=== PATIENT | female | born 1990 | race Caucasian/White ===

== ENCOUNTER 2020-12-20 12:36 | Inpatient (IN) | payer OTHER, MEDICAID ==
[~2020-12-20] VITALS: Ht 157.5 cm; Wt 71.2 kg
[~2020-12-20 12:36] MED LIST: PNV91TAB3 PO
[2020-12-21] MEDS ORDERED: CEFAZOLIN SODIUM 1 GM VIAL IVP PRN (08:30)
[2020-12-21] MEDS ORDERED: LACTATED RINGERS 1000ML 1,000 ML IV SCH (08:30)
[2020-12-21 08:56] LABS: HEMATOCRIT 34.8 % (36-48); MEAN CORPUSCULAR HEMOGLOBIN 28.5 pg (27.0-33.0); MEAN CORPUSCULAR HGB CONC 33.6 g/dL (32.0-36.0); MEAN CORPUSCULAR VOLUME 84.9 fL (79-99); RED BLOOD CELL COUNT(AUTO) 4.1 MIL/uL (4.00-5.50); RED CELL DISTRIBUTION WIDTH 13.6 % (11.0-15.5); WHITE BLOOD COUNT (AUTO) 14.5 K/uL (4.8-10.8)
[2020-12-21 11:08] LABS: RAPID PLASMA REAGIN NONREACTIVE (NONREACTIVE)
[2020-12-21] MEDS ORDERED: FENTANYL CITRATE PF 50 MCG/1 ML 2ML VIAL ONE (12:38)
[2020-12-21] MEDS ORDERED: MORPHINE PF 100MG/10ML AMP IV ONE (12:38)
[2020-12-21] MEDS ORDERED: OXYTOCIN 10 UNIT/1ML 10ML VIAL ONE (12:39)
[2020-12-21] MEDS ORDERED: ONDANSETRON 4MG INJ ONE (12:40)
[2020-12-21] MEDS ORDERED: CEFAZOLIN SODIUM 1 GM VIAL IVP ONE (12:51)
[2020-12-21] MEDS ORDERED: MEPERIDINE-PF 75 MG/ML SYG IM PRN (13:30)
[2020-12-21] MEDS ORDERED: PROMETHAZINE HCL 25 MG/ML 1ML AMPULE IM PRN (13:30)
[2020-12-21] MEDS ORDERED: 0.9%NACL 10ML VIAL IVP PRN (13:30)
[2020-12-21] MEDS ORDERED: OXYTOCIN-LR 20 UNITS/1000 ML 1,000 ML IV PRN (13:30)
[2020-12-21 15:14] VITALS: BP 113/67
[2020-12-21] MEDS ORDERED: NALOXONE HCL 0.4 MG/1 ML ML IVP PRN ×3 (15:45→16:00)
[2020-12-21] MEDS ORDERED: EPHEDRINE SULFATE 50 MG/ML AMPULE IVP PRN (16:00)
[2020-12-21] MEDS ORDERED: DiphenhydrAMINE HCL 50 MG/ML VIAL IVP PRN (16:00)
[2020-12-21] MEDS ORDERED: ONDANSETRON 4MG INJ IVP PRN (16:00)
[2020-12-21 20:45] VITALS: BP 119/63
[2020-12-21] MEDS: DEXTROSE 5 %-0.45 % NACL 1,000 ML IV PRN (21:21)
[2020-12-21 23:44] VITALS: BP 102/60
[2020-12-22 03:48] VITALS: BP 105/64
[2020-12-22] MEDS: DEXTROSE 5 %-0.45 % NACL 1,000 ML IV PRN (03:59)
[2020-12-22 06:54] LABS: HEMATOCRIT 34.9 % (36-48); MEAN CORPUSCULAR HEMOGLOBIN 27.9 pg (27.0-33.0); MEAN CORPUSCULAR HGB CONC 32.4 g/dL (32.0-36.0); MEAN CORPUSCULAR VOLUME 86.2 fL (79-99); RED BLOOD CELL COUNT(AUTO) 4.05 MIL/uL (4.00-5.50); RED CELL DISTRIBUTION WIDTH 13.7 % (11.0-15.5); WHITE BLOOD COUNT (AUTO) 15.5 K/uL (4.8-10.8)
[2020-12-22 07:17] VITALS: BP 100/53
[2020-12-22] MEDS ORDERED: HYDROCODONE/ACETAMINOPHEN 5/325 MG TAB PO PRN (08:45)
[2020-12-22] MEDS ORDERED: ACETAMINOPHEN 500 MG TABLET PO PRN (08:45)
[2020-12-22] MEDS ORDERED: IBUPROFEN 600 MG TABLET PO PRN (08:45)
[2020-12-22] MEDS ORDERED: BISACODYL 10 MG SUPP.RECT RC PRN (08:45)
[2020-12-22] MEDS ORDERED: ACETAMINOPHEN WITH CODEINE 1 TAB TAB PO PRN (08:45)
[2020-12-22] MEDS ORDERED: LANOLIN 30GM OINTMENT TP PRN (08:45)
[2020-12-22] MEDS ORDERED: DOCUSATE SODIUM 100 MG CAP PO SCH (09:00)
[2020-12-22] MEDS: SIMETHICONE 80 MG TAB.CHEW PO PRN ×2 (09:18→13:11)
[2020-12-22 11:21] VITALS: BP 110/59
[2020-12-22] MEDS ORDERED: IBUPROFEN 800 MG TAB PO SCH (13:30)
[2020-12-23 09:10] LABS: HEPATITIS Bs ANTIGEN SCREEN P Negative (Negative)
== END 2020-12-22 13:40 | disposition home or self-care (01) | DRG 788 ==
LOC: OBSVTOIN 12-21 08:00 → LDH 12-21 08:00 → WSH 12-21 15:10
PROVIDERS: ADMIT Specialist; ATTEND Specialist
PROC: 10D00Z1 Extraction of Products of Conception, Low, Open Approach (ICD-10-PCS; principal; 2020-12-21 12:30)
DX: O32.1XX0 Maternal care for breech presentation, not applicable or unspecified (principal); Z3A.39 39 weeks gestation of pregnancy; Z37.0 Single live birth; K21.9 Gastro-esophageal reflux disease without esophagitis; O99.62 Diseases of the digestive system complicating childbirth
CPT/HCPCS: 36415; 59510; 76815; 85027; 86592; 86701; 86850; 86900; 86901; 87340; 87390; A4344; G0378; J0690; J2274; J2405; J2590; J3010; J7120